=== PATIENT | female | born 1960 | race Caucasian/White ===

== ENCOUNTER 2018-07-24 18:41 | Emergency (ER) | END 2018-07-25 00:31 | disposition home or self-care (01) ==

== ENCOUNTER 2019-02-28 08:07 | Emergency (ER) | payer OTHER ==
[~2019-02-28] VITALS: Ht 167.6 cm; Wt 74.3 kg
[~2019-02-28 08:07] MED LIST: AMLO5TAB4 PO; ASPI-535 PO; CALC-516 PO; GLUC100015 PO; HYDR-4011 PO; MULT-853 PO; NAPR-688 PO; OMEG-135 PO; TRAZ-111 PO
[2019-02-28 08:11] VITALS: Ht 167.6 cm; Wt 74.3 kg
[2019-02-28] MEDS ORDERED: SOD CHLORIDE 0.9% 100 ML ONE (10:23)
[2019-02-28] MEDS ORDERED: IOHEXOL 300MG/ML 150 ML BTL ONE (10:23)
[2019-02-28] MEDS ORDERED: AMLO5TAB4 PO (11:22)
[2019-02-28] MEDS ORDERED: ASPI-817 PO (11:23)
--- NOTE | 2019-02-28 15:18 | ERD ---
ER Documentation Chief Complaint Chief Complaint Complains of abdominal and pelvic pain x 2 days ROS All systems reviewed and are negative except as per history of present illness. Medications Home Meds Reported Medications Aspirin* (Aspirin* EC) 81 Mg Tablet.dr, 81 MG PO DAILY, TAB 02/28/19 Amlodipine Besylate* (Norvasc*) 5 Mg Tablet, 5 MG PO DAILY, TAB 02/28/19 Discontinued Reported Medications Multivits-Min/Iron/FA/Lutein (Centrum Silver Women Tablet) 1 Each Tablet, 1 EACH PO, TAB 07/24/18 Calcium Carbonate/Vitamin D3 (OYSTER SHELL CALCIUM TABLET) 1 Each Tablet, 1 EACH PO, TAB 07/24/18 [place]-3 Fatty Acids/Fish Oil (Fish Oil 1,000 mg Capsule) 1 Each Capsule, 1 EACH PO, CAP 07/24/18 Glucosamine Sulfate 2KCL (GLUCOSAMINE) 1,000 Mg Tablet, 1000 MG PO, TAB 07/24/18 Aspirin Ec (Aspir 81) 81 Mg Tablet.dr, 81 MG PO DAILY, #30 TAB 07/24/18 Amlodipine Besylate* (Norvasc*) 5 Mg Tablet, 5 MG PO DAILY, TAB 07/24/18 Discontinued Scripts Trazodone Hcl* (Trazodone Hcl*) 50 Mg Tablet, 50 MG PO QHS PRN for INSOMNIA, #12 TAB Prov:CHARO MARTINEZ DO 07/25/18 Hydrocodone/Acetaminophen ([place] 5-325 Tablet) 1 Each Tablet, 1 EACH PO Q6 PRN for SEVERE PAIN LEVEL 7-10, #10 TAB Prov:CHARO MARTINEZ DO 07/25/18 Naproxen* (Naproxen*) 500 Mg Tablet, 500 MG PO BID PRN for PAIN, #20 TAB Prov:CHARO MARTINEZ DO 07/25/18 Allergies Allergies: Coded Allergies: Penicillins (Verified Allergy, Unknown, 02/28/19) amoxicillin (Verified Allergy, Unknown, 02/28/19) sulfamethoxazole (Verified Allergy, Unknown, 02/28/19) trimethoprim (Verified Allergy, Unknown, 02/28/19) PMhx/Soc Hx Alcohol Use: No Hx Substance Use: No Hx Tobacco Use: No Smoking Status: Never smoker Physical Exam Vitals Vital Signs Date Temp Pulse Resp B/P (MAP) Pulse Ox O2 O2 Flow FiO2 Time Delivery Rate 02/28/19 97.7 69 20 122/79 100 08:11 (93) Physical Exam Const: No acute distress Head: Atraumatic Eyes: Normal Conjunctiva ENT: Normal External Ears, Nose and Mouth. Neck: Full range of motion. No meningismus. Resp: Clear to auscultation bilaterally Cardio: Regular rate and rhythm, no murmurs Abd: Soft, non tender, non distended. Normal bowel sounds Skin: No petechiae or rashes Back: No midline or flank tenderness Ext: No cyanosis, or edema Neur: Awake and alert Psych: Normal Mood and Affect Result Diagram: 02/28/1994202/28/19942 Results 24 hrs Laboratory Tests Test 02/28/19 09:35 02/28/19 09:43 Urine Color STRAW Urine Clarity CLEAR Urine pH 7.0 Urine Specific [place] 1.009 Urine Ketones NEGATIVE mg/dL Urine Nitrite NEGATIVE mg/dL Urine Bilirubin NEGATIVE mg/dL Urine Urobilinogen NEGATIVE mg/dL Urine Leukocyte Esterase NEGATIVE Chriss/ul Urine Microscopic RBC 1 /HPF Urine Microscopic WBC 0 /HPF Urine Squamous Epithelial Cells FEW /HPF Urine Hemoglobin 1+ mg/dL Urine Glucose NEGATIVE mg/dL Urine Total Protein NEGATIVE mg/dl White Blood Count 7.4 10^3/ul Red Blood Count 4.78 10^6/ul Hemoglobin 13.2 g/dl Hematocrit 40.4 % Mean Corpuscular Volume 84.5 fl Mean Corpuscular Hemoglobin 27.6 pg Mean Corpuscular Hemoglobin Concent 32.7 g/dl Red Cell Distribution Width 12.7 % Platelet Count 435 10^3/UL Mean Platelet Volume 9.8 fl Immature Granulocytes % 0.300 % Neutrophils % 46.7 % Lymphocytes % 45.5 % Monocytes % 4.9 % Eosinophils % 2.2 % Basophils % 0.4 % Nucleated Red Blood Cells % 0.0 /100WBC Immature Granulocytes # 0.020 10^3/ul Neutrophils # 3.4 10^3/ul Lymphocytes # 3.4 10^3/ul Monocytes # 0.4 10^3/ul Eosinophils # 0.2 10^3/ul Basophils # 0.0 10^3/ul Nucleated Red Blood Cells # 0.0 10^3/ul Sodium Level 143 mmol/L Potassium Level 4.1 mmol/L Chloride Level 107 mmol/L Carbon Dioxide Level 25 mmol/L Anion Gap 11 Blood Urea Nitrogen 11 mg/dl Creatinine 0.48 mg/dl Est Glomerular Filtrat Rate mL/min > 60 mL/min Glucose Level 95 mg/dl Calcium Level 10.4 mg/dl Total Bilirubin 0.6 mg/dl Direct Bilirubin 0.00 mg/dl Indirect Bilirubin 0.6 mg/dl Aspartate Amino Transf (AST/SGOT) 26 IU/L Alanine Aminotransferase (ALT/SGPT) 22 IU/L Alkaline Phosphatase 92 IU/L Total Protein 8.7 g/dl Albumin 4.6 g/dl Globulin 4.10 g/dl Albumin/Globulin Ratio 1.12 Lipase 102 U/L Current Medications Medications Dose Sig/Missael Start Time Status Last (Trade) Ordered Route PRN Stop Time Admin Dose Reason Admin IV Flush 10 ml STK-MED 02/28/19 DC 02/28/19 (NS 10 ml) ONCE .ROUTE 10:02/28/19 10:23 10:24 Sodium 100 ml @ ud STK-MED 02/28/19 DC 02/28/19 Chloride ONCE .ROUTE 10:02/28/19 10:23 10:24 Iohexol 150 ml STK-MED 02/28/19 DC 02/28/19 (Omnipaque ONCE .ROUTE 10:02/28/19 10:23 300mg/ ml) 10:24 Procedures/MDM DOCUMENTS REVIEWED: ED nurse, [ ] LAB INTERPRETATION: [] EKG: Time: [ ] My Interpretation IMAGING: [ ] ED COURSE: [] REEXAMINATION/REEVALUATION: Time: [] MEDICAL DECISION MAKING: []. Stable for discharge with precautionary instructions and outpatient follow-up as counseled. Counseled patient[ and family] regarding diagnostic workup, diagnosis and need for followup. Understands to return to ED if symptoms recur, worsen or any other concerns. Departure Diagnosis: Primary Impression: LLQ abdominal pain Additional Impressions: Abdominal pain of unknown cause Constipation Constipation type: unspecified constipation type Qualified Codes: K59.00 - Constipation, unspecified Condition: Stable TERRIE BUSTILLOS MD February 28, 2019 15:18
[2019-02-28] MEDS ORDERED: POLY17PO6 PO (15:20)
[2019-02-28 15:55] VITALS: BP 123/81; PULSE 72; RESP 16
== END 2019-02-28 15:55 | disposition home or self-care (01) ==
LOC: E/R 08:07
DX: R10.32 Left lower quadrant pain (principal); K59.00 Constipation, unspecified; Z79.82 Long term (current) use of aspirin
CPT/HCPCS: 36415; 74177; 76830; 76856; 80053; 81001; 83690; 85025; Q9967; Z7502; Z7610

== ENCOUNTER 2019-05-05 16:22 | Emergency (ER) | payer OTHER ==
[~2019-05-05] VITALS: Ht 157.5 cm; Wt 75.8 kg
[~2019-05-05 16:22] MED LIST changes: -ASPI-535 PO; +ASPI-817 PO; -CALC-516 PO; -GLUC100015 PO; -HYDR-4011 PO; -MULT-853 PO; -NAPR-688 PO; -OMEG-135 PO; +POLY17PO6 PO; -TRAZ-111 PO
[2019-05-05 16:29] VITALS: BP 149/79; PULSE 81; RESP 20; Ht 157.5 cm; Wt 75.8 kg
[2019-05-05] MEDS ORDERED: CLIN300C10 PO (16:51)
--- NOTE | 2019-05-05 16:57 | ERD ---
ER Documentation Chief Complaint Chief Complaint c/o chronic low back pain x7 years HPI 59-year-old female presents complaint of cyst on her upper buttock for the past 7 years. Patient states that it hurts when she rubs it. Patient denies any fevers, chills, erythema, edema. Allergic to penicillins and Bactrim. ROS All systems reviewed and are negative except as per history of present illness. Medications Home Meds Active Scripts Clindamycin Hcl* (Clindamycin Hcl*) 300 Mg Capsule, 300 MG PO QID for 7 Days, CAP Prov:YING LOCKETT 05/05/19 Polyethylene Glycol* (Miralax*) 17 Gm Powd.pack, 17 GM PO DAILY, #7 Prov:TERRIE BUSTILLOS MD 02/28/19 Reported Medications Aspirin* (Aspirin* EC) 81 Mg Tablet.dr, 81 MG PO DAILY, TAB 02/28/19 Amlodipine Besylate* (Norvasc*) 5 Mg Tablet, 5 MG PO DAILY, TAB 02/28/19 Allergies Allergies: Coded Allergies: Penicillins (Verified Allergy, Unknown, 02/28/19) amoxicillin (Verified Allergy, Unknown, 02/28/19) sulfamethoxazole (Verified Allergy, Unknown, 02/28/19) trimethoprim (Verified Allergy, Unknown, 02/28/19) PMhx/Soc History of Surgery: Yes (Hysterectomy) Anesthesia Reaction: No Hx Neurological Disorder: No Hx Respiratory Disorders: No Hx Cardiac Disorders: Yes (Hypertension) Hx Psychiatric Problems: No Hx Miscellaneous Medical Probl: Yes Hx Alcohol Use: No Hx Substance Use: No Hx Tobacco Use: No FmHx Family History: No diabetes, No coronary disease, No other Physical Exam Vitals Vital Signs Date Temp Pulse Resp B/P (MAP) Pulse Ox O2 O2 Flow FiO2 Time Delivery Rate 05/05/19 99.0 81 20 149/79 97 16:29 (102) Physical Exam Const: No acute distress Head: Atraumatic Eyes: Normal Conjunctiva ENT: Normal External Ears, Nose and Mouth. Neck: Full range of motion. No meningismus. Resp: Clear to auscultation bilaterally Cardio: Regular rate and rhythm, no murmurs Abd: Soft, non tender, non distended. Normal bowel sounds Skin: Approximately 3 cm fluctuant non-erythematous mass noted to upper left buttock. There is no lymphatic streaking noted. No draining noted. Back: No midline or flank tenderness Ext: No cyanosis, or edema Neur: Awake and alert Psych: Normal Mood and Affect Results 24 hrs Current Medications Medications Dose Sig/Missael Start Time Status Last (Trade) Ordered Route PRN Stop Time Admin Dose Reason Admin Lidocaine 20 ml ONCE ONCE 05/05/19 (Xylocaine SC 17:00 05/05/19 1% (Mdv) 20 17:01 ml) Lidocaine 1 applic ONCE ONCE 05/05/19 (Lmx 4% Plus) TOP 17:00 05/05/19 17:01 Bacitracin 1 applic ONCE ONCE 05/05/19 (Bacitracin TOP 17:00 05/05/19 Oint (Ud)) 17:01 Procedures/MDM MDM: Abscess Incision and Drainage with irrigation by me: Location: Upper left buttock Anesthesia: Local 1% Lidocaine Technique: Irrigated. Disrupted loculations w/ instrumentation Packing: None Complications: Neurovascularly intact post procedure 48 hour wound check. Scar minimization instructions given. I will suspicion for perirectal or perianal abscess, pilonidal cyst, acute space infection, or any emergent condition. Cyst was especially drained using above technique. Patient was given clindamycin for her Bactrim and penicillin allergies. Patient told to follow-up in 48 hours for wound check. At this time, patient is stable for discharge and outpatient management. I have instructed the patient to follow-up with his/her primary care physician in 1-2 days as well as return in 48 hours for wound check. I have discussed with the patient the possibility of needing to see a specialist for further workup and imaging studies if symptoms persist. I have instructed the patient to promptly return to the ER for any new or worsening symptoms including but not limited to increased pain, fever, nausea, vomiting, weakness or LOC. The patient and/or family expressed understanding of and agreement with this plan. All questions were answered. Home care instructions were provided. Communication with patient both during the exam and instructions for discharge were performed with using a hot plate plywood press offbearer . Patient gave verbal confirmation to the practitioner, through the hot plate plywood press offbearer, that they understood everythign that was being said to them. DISCLAIMER: Inadvertent spelling and grammatical errors are likely due to EHR/dictation software use and do not reflect on the overall quality of patient care. Also, please note that the electronic time recorded on this note does not necessarily reflect the actual time of the patient encounter. Departure Diagnosis: Primary Impression: Cyst Condition: Stable Patient Instructions: Sebaceous Cyst, Infected (I And D) Referrals: [facility] YOU HAVE RECEIVED A MEDICAL SCREENING EXAM AND THE RESULTS INDICATE THAT YOU DO NOT HAVE A CONDITION THAT REQUIRES URGENT TREATMENT IN THE EMERGENCY DEPARTMENT. FURTHER EVALUATION AND TREATMENT OF YOUR CONDITION CAN WAIT UNTIL YOU ARE SEEN IN YOUR DOCTORS OFFICE WITHIN THE NEXT 1-2 DAYS. IT IS YOUR RESPONSIBILITY TO MAKE AN APPOINTMENT FOR FOLOW-UP CARE. IF YOU HAVE A PRIMARY DOCTOR --you should call your primary doctor and schedule an appointment IF YOU DO NOT HAVE A PRIMARY DOCTOR YOU CAN CALL OUR PHYSICIAN REFERRAL HOTLINE AT IF YOU CAN NOT AFFORD TO SEE A PHYSICIAN YOU CAN CHOSE FROM THE FOLLOWING [facility] CL[facility]ICS [facility] [address] [facility] [address] [facility] [facility] [address] [facility] [address] [facility] [address] [facility]. [facility] [address] Additional Instructions: Return to this facility in 2 DAYS for a follow-up exam.Return sooner if your condition worsens. YING LOCKETT May 05, 2019 16:57
[2019-05-05] MEDS ORDERED: LIDOCAINE 4% CR TOP ONE (17:00)
[2019-05-05] MEDS ORDERED: LIDOCAINE 1% (MDV) 20 ML INJ SC ONE (17:00)
[2019-05-05] MEDS ORDERED: BACITRACIN 0.9 GM OINT TOP ONE (17:00)
== END 2019-05-05 17:35 | disposition home or self-care (01) ==
LOC: FTE 16:22
DX: L02.31 Cutaneous abscess of buttock (principal); I10 Essential (primary) hypertension; Z79.82 Long term (current) use of aspirin
CPT/HCPCS: 10060; Z7502; Z7610

== ENCOUNTER 2019-05-07 08:05 | Emergency (ER) | payer OTHER ==
[~2019-05-07] VITALS: Ht 157.5 cm; Wt 76.0 kg
[~2019-05-07 08:05] MED LIST changes: +CLIN300C10 PO
[2019-05-07 08:07] VITALS: BP 137/84; PULSE 84; RESP 18; Ht 157.5 cm; Wt 76.0 kg
--- NOTE | 2019-05-07 08:59 | ERD ---
ER Documentation Chief Complaint Chief Complaint wound check on back HPI 59-year-old female presenting for wound check on her back. Patient had a incision and drainage performed 2 days ago for a cyst on her back. She is been taking her antibiotics as prescribed. Denies other medical problems. Allergic to penicillin and Bactrim. Surgical history denies. Social history denies ROS All systems reviewed and are negative except as per history of present illness. Medications Home Meds Active Scripts Clindamycin Hcl* (Clindamycin Hcl*) 300 Mg Capsule, 300 MG PO QID for 7 Days, CAP Prov:YING LOCKETT 05/05/19 Polyethylene Glycol* (Miralax*) 17 Gm Powd.pack, 17 GM PO DAILY, #7 Prov:TERRIE BUSTILLOS MD 02/28/19 Reported Medications Aspirin* (Aspirin* EC) 81 Mg Tablet.dr, 81 MG PO DAILY, TAB 02/28/19 Amlodipine Besylate* (Norvasc*) 5 Mg Tablet, 5 MG PO DAILY, TAB 02/28/19 Allergies Allergies: Coded Allergies: Penicillins (Verified Allergy, Unknown, 02/28/19) amoxicillin (Verified Allergy, Unknown, 02/28/19) sulfamethoxazole (Verified Allergy, Unknown, 02/28/19) trimethoprim (Verified Allergy, Unknown, 02/28/19) PMhx/Soc History of Surgery: Yes (Hysterectomy) Anesthesia Reaction: No Hx Neurological Disorder: No Hx Respiratory Disorders: No Hx Cardiac Disorders: Yes (Hypertension) Hx Psychiatric Problems: No Hx Miscellaneous Medical Probl: Yes Hx Alcohol Use: No Hx Substance Use: No Hx Tobacco Use: No Smoking Status: Never smoker FmHx Family History: No diabetes, No coronary disease, No other Physical Exam Vitals Vital Signs Date Temp Pulse Resp B/P (MAP) Pulse Ox O2 O2 Flow FiO2 Time Delivery Rate 05/07/19 98.1 84 18 137/84 99 08:07 (101) Physical Exam GENERAL: The patient is well-appearing, well-nourished, in no acute distress CHEST: Clear to auscultation bilaterally. There are no rales, wheezes or rhonchi. HEART: Regular rate and rhythm. No murmurs, clicks, rubs or gallops. SKIN: Cyst noted to the lower back. Because she is white discharge extracted from the region with no purulence. Procedures/MDM ER course: Additional cystic contents were removed from the cyst today. Bandage applied. MDM: 5-year-old female presenting with wound complaint. Patient has a epidermal inclusion cyst which was drained at today's visit. I have low suspicion for worsening infection or tracking infection. Patient is discharged and recommended to continue taking antibiotics as previously prescribed. All questions answered at discharge Departure Diagnosis: Primary Impression: Encounter for wound re-check Condition: Stable Patient Instructions: Sebaceous Cyst, Infected (Abx Tx) Referrals: [facility] YOU HAVE RECEIVED A MEDICAL SCREENING EXAM AND THE RESULTS INDICATE THAT YOU DO NOT HAVE A CONDITION THAT REQUIRES URGENT TREATMENT IN THE EMERGENCY DEPARTMENT. FURTHER EVALUATION AND TREATMENT OF YOUR CONDITION CAN WAIT UNTIL YOU ARE SEEN IN YOUR DOCTORS OFFICE WITHIN THE NEXT 1-2 DAYS. IT IS YOUR RESPONSIBILITY TO MAKE AN APPOINTMENT FOR FOLOW-UP CARE. IF YOU HAVE A PRIMARY DOCTOR --you should call your primary doctor and schedule an appointment IF YOU DO NOT HAVE A PRIMARY DOCTOR YOU CAN CALL OUR PHYSICIAN REFERRAL HOTLINE AT IF YOU CAN NOT AFFORD TO SEE A PHYSICIAN YOU CAN CHOSE FROM THE FO[facility]ING [facility] [address] [facility] [address] [facility] [facility] [address] [facility] [facility] [address] [facility]. [facility] [address] [facility]. [facility]. [address] Additional Instructions: FOLLOW UP WITH YOUR PRIMARY CARE PHYSICIAN TOMORROW.Return to this facility if you are not improving as expected. LYN LINDSAY PA-C May 07, 2019 08:59
== END 2019-05-07 08:45 | disposition home or self-care (01) ==
LOC: FTE 08:05
DX: Z48.01 Encounter for change or removal of surgical wound dressing (principal); I10 Essential (primary) hypertension; Z79.82 Long term (current) use of aspirin
CPT/HCPCS: 99281